=== PATIENT | female | born 1955 | race Caucasian/White ===

== ENCOUNTER → 2019-01-18 13:54 | Outpatient (CLI) | payer MEDICARE, OTHER, SELFPAY | PROVIDERS: PCP Family Medicine; Visit Provider Family Medicine | DX: M81.0 Age-related osteoporosis without current pathological fracture (principal); Z78.0 Asymptomatic menopausal state | CPT/HCPCS: 77080 ==

== ENCOUNTER → 2019-06-26 12:49 | Outpatient (CLI) | payer MEDICARE, OTHER, SELFPAY ==
--- NOTE | 2019-06-26 | DI.MG.S_ITS ---
BILATERAL DIGITAL SCREENING MAMMOGRAM 3D/2D WITH CAD: 06/26/2019 CLINICAL: Routine screening. Comparison is made to exams dated: 06/13/2018 mammogram, 05/17/2017 mammogram, and 05/04/2016 mammogram - [facility]. The tissue of both breasts is heterogeneously dense. This may lower the sensitivity of mammography. Current study was also evaluated with a Computer Aided Detection (CAD) system. There is a 0.5 cm oval equal density mass with an indistinct margin and grouped fine punctate calcifications in the left breast at 1 o'clock posterior depth. This is increased in number of calcifications. No other significant masses, calcifications, or other findings are seen in either breast. IMPRESSION: INCOMPLETE: NEEDS ADDITIONAL IMAGING EVALUATION The 0.5 cm oval equal density mass in the left breast is indeterminate. Mediolateral and spot magnification views as well as additional views with possible ultrasound are recommended. This exam was interpreted at Station ID: [id number]. NOTE: For mammograms, a report in lay terms will be sent to the patient. Approximately 15% of breast malignancies will not be visualized mammographically. In the management of a palpable breast mass, a negative mammogram must not discourage biopsy of a clinically suspicious lesion. Electronically Signed By: Yonatan velez/trip:06/26/2019 15:11:26 letter sent: Additional Imaging Needed ACR BI-RADS Category 0: Incomplete 3340F
== END ==
PROVIDERS: PCP Family Medicine; Visit Provider Family Medicine
DX: Z12.31 Encounter for screening mammogram for malignant neoplasm of breast (principal)
CPT/HCPCS: 77063; 77067

== ENCOUNTER → 2019-07-05 13:30 | Outpatient (CLI) | payer MEDICARE, OTHER, SELFPAY ==
--- NOTE | 2019-07-05 | DI.US.S_ITS ---
LIMITED ULTRASOUND OF LEFT BREAST: 07/05/2019 CLINICAL: Palpable left breast lump. Comparison is made to exams dated: 07/05/2019 mammogram, 06/26/2019 mammogram - [facility], 06/13/2018 mammogram, 05/17/2017 mammogram, and 05/04/2016 mammogram - [facility]. Color flow ultrasound of the left breast 1-3 o'clock region was performed. Santiago scale images of the real-time examination were reviewed. There is a 0.7 x 0.4 x 0.3 cm oval circumscribed hypoechoic mass with increased through transmission/posterior acoustic enhancement, and no vascularity on Doppler ultrasound located in the left breast at 2 o'clock 2 cm from the nipple. This demonstrates low level internal echogenic foci versus possible calcifications. This may correlate with the finding seen on mammography. IMPRESSION: PROBABLY BENIGN 0.7 x 0.4 x 0.3 cm oval hypoechoic avascular mass in the left breast at 2 o'clock 2 cm from the nipple, which may represent a complicated cyst or fibroadenoma. This may correlate with the findings seen on comparison mammography. A follow-up mammogram and an ultrasound in 6 months is recommended to demonstrate stability. The patient is advised to monitor her breasts and to return sooner for re-evaluation should she feel anything grow or change. This exam was interpreted at Station ID: [id number]. Electronically Signed By: Ernie Linares M.D. ecl/:07/06/2019 18:25:03 letter sent: Followup Recommended Ultrasound BI-RADS: 3 Probably benign
--- NOTE | 2019-07-05 | DI.MG.S_ITS ---
UNILATERAL LEFT DIGITAL DIAGNOSTIC MAMMOGRAM 3D/2D WITH ADDITIONAL VIEWS: 07/05/2019 CLINICAL: Additional evaluation requested from prior study. Comparison is made to exams dated: 06/26/2019 mammogram - [facility], 06/13/2018 mammogram, and 05/17/2017 mammogram - [facility]. The tissue of left breast is heterogeneously dense. This may lower the sensitivity of mammography. Previously identified 0.5 cm oval equal density mass with an indistinct margin and grouped calcifications in the superior lateral left breast at posterior depth on comparison screening mammograms of 06/26/19 persists with additional views. These were described as fine punctate calcifications near 1 o'clock position on screening mammography of 06/26/19, but demonstrate a more coarse morphology on magnification views (and appears near 1-2 o'clock position on additional views). Please note however that a single image in this exam is labeled RMCC (magnification RCC view) which, per technologist, represents a technical error. The image is of the calcifications in the left breast but was mislabeled as the right breast, with the label unable to be fixed despite multiple best efforts by technologist/technical staff. IMPRESSION: INCOMPLETE: NEEDS ADDITIONAL IMAGING EVALUATION Previously identified 0.5 cm oval equal density mass with an indistinct margin and grouped calcifications in the superior lateral left breast at posterior depth on comparison screening mammograms of 06/26/19 persists with additional views. A targeted ultrasound is recommended for further evaluation, and will be performed immediately following this exam. This exam was interpreted at Station ID: [id number]. NOTE: For mammograms, a report in lay terms will be sent to the patient. Approximately 15% of breast malignancies will not be visualized mammographically. In the management of a palpable breast mass, a negative mammogram must not discourage biopsy of a clinically suspicious lesion. Electronically Signed By: Ernie Linares M.D. ecl/:07/05/2019 14:32:36 ACR BI-RADS Category 0: Incomplete 3340F
== END ==
PROVIDERS: PCP Family Medicine; Visit Provider Family Medicine
DX: R92.8 Other abnormal and inconclusive findings on diagnostic imaging of breast (principal); N63.21 Unspecified lump in the left breast, upper outer quadrant
CPT/HCPCS: 76642; 77065; G0279

== ENCOUNTER → 2020-01-15 14:49 | Outpatient (CLI) | payer MEDICARE, OTHER, SELFPAY ==
--- NOTE | 2020-01-15 | DI.US.S_ITS ---
PROCEDURE: US ABDOMEN COMPLETE INDICATIONS: ABDOMINAL PAIN TECHNIQUE: Real-time scanning was performed of the abdominal and retroperitoneal organs, with image documentation. COMPARISON: None. FINDINGS: Liver: Liver is normal in size and homogeneous in echotexture. Gallbladder: No findings of gallstones or sludge are seen. The gallbladder wall is not thickened, measuring 3 mm or less. No specific pericholecystic fluid is seen. The sonographic Rosario sign is negative. Biliary ducts: Intrahepatic bile ducts are non-dilated. Extrahepatic bile duct caliber measures 6 mm. Normal is 6-7 mm or less in diameter, or 10 mm or less post-cholecystectomy. Pancreas: Visualized portions of the pancreas are sonographically normal. Spleen: Spleen is normal in size and homogeneous in echotexture. Kidneys: Kidneys are normal in size and echotexture. Right kidney measures 10.5 cm long; left kidney measures 10.3 cm long. No hydronephrosis or nephrolithiasis. No solid masses. Aorta: Visualized aorta is normal in caliber at less than 3 cm. Iliacs: Proximal common iliac arteries are normal in caliber at less than 2.5 cm. IVC: Intrahepatic inferior vena cava is patent. Miscellaneous: No free abdominal fluid. IMPRESSION: The gallbladder demonstrates a normal sonographic appearance. No biliary dilatation is seen. Dictated by: Jean Marin M.D. on 01/15/2020 at 17:12 Approved by: Jean Marin M.D. on 01/15/2020 at 17:13
--- NOTE | 2020-01-15 | DI.US.S_ITS ---
LIMITED ULTRASOUND OF LEFT BREAST: 01/15/2020 CLINICAL: Lt breast 6 month F/U. Comparison is made to exams dated: 01/15/2020 mammogram, 07/05/2019 ultrasound, 07/05/2019 mammogram, 06/26/2019 mammogram - [facility], 06/13/2018 mammogram, and 05/17/2017 mammogram - [facility]. Color flow and real-time ultrasound of the left breast 1-2 o'clock region were performed on the areas of interest. There is a 0.6 cm x 0.3 cm x 0.5 cm oval mass with an indistinct margin in the left breast at 1 o'clock posterior depth. This oval mass is hypoechoic. This likely correlates with mammography findings. There are related calcifications. Color flow imaging demonstrates that there is no vascularity present. There also is a 0.7 cm x 0.3 cm x 0.4 cm oval cyst in the left breast at 2 o'clock middle depth. This oval cyst is hypoechoic with internal echoes. This abnormality is not significantly changed. Color flow imaging demonstrates that there is no vascularity present. IMPRESSION: PROBABLY BENIGN The 0.6 cm x 0.3 cm x 0.5 cm oval mass in the left breast at 1 o'clock posterior depth likely represents a fibroadenoma and is probably benign. Follow-up mammogram and ultrasound in 6 months are recommended. The 0.7 cm x 0.3 cm x 0.4 cm oval cyst in the left breast at 2 o'clock middle depth is consistent with a complicated cyst and is probably benign. Follow-up mammogram and ultrasound in 6 months are recommended. A follow-up mammogram and an ultrasound in 6 months is recommended to demonstrate stability. Patient will be due for screening mammography of the contralateral breast at that time. This exam was interpreted at Station ID: [id number]. Electronically Signed By: Yonatan velez/:01/15/2020 16:31:45 letter sent: Followup Recommended Ultrasound BI-RADS: 3 Probably benign
--- NOTE | 2020-01-15 | DI.MG.S_ITS ---
UNILATERAL LEFT DIGITAL DIAGNOSTIC MAMMOGRAM 3D/2D SHORT-TERM FOLLOW-UP: 01/15/2020 CLINICAL: Patient returns for a 6 month follow up of the left breast. Comparison is made to exams dated: 07/05/2019 mammogram, 06/26/2019 mammogram - [facility], and [place] [facility] [place] The tissue of left breast is heterogeneously dense. This may lower the sensitivity of mammography. There is an oval equal density mass with an indistinct margin and grouped coarse dystrophic calcifications in the left breast at 1 o'clock posterior depth. This is increased in number of calcifications. No other significant masses or calcifications are seen in the breast. IMPRESSION: INCOMPLETE: NEEDS ADDITIONAL IMAGING EVALUATION The oval equal density mass in the left breast is indeterminate. An ultrasound is recommended. Ultrasound will be performed immediately following the current exam. This exam was interpreted at Station ID: [id number]. NOTE: For mammograms, a report in lay terms will be sent to the patient. Approximately 15% of breast malignancies will not be visualized mammographically. In the management of a palpable breast mass, a negative mammogram must not discourage biopsy of a clinically suspicious lesion. Electronically Signed By: Yonatan Grady M.D. ddp/:01/15/2020 16:05:56 ACR BI-RADS Category 0: Incomplete 3340F
== END ==
PROVIDERS: PCP Family Medicine; Referring Provider Family Medicine; Visit Provider Family Medicine
DX: R92.8 Other abnormal and inconclusive findings on diagnostic imaging of breast (principal); N60.02 Solitary cyst of left breast; R10.9 Unspecified abdominal pain
CPT/HCPCS: 76642; 76700; 77065; G0279

== ENCOUNTER → 2020-02-26 17:07 | Outpatient (CLI) | payer MEDICARE, OTHER, SELFPAY ==
--- NOTE | 2020-02-26 17:09 | DI.MRI.S_ITS ---
PROCEDURE: MR SHOULDER LT WO CON INDICATIONS: IMPINGEMENT SYNDROME OF LEFT SHOULDER TECHNIQUE: Noncontrast oblique coronal T2 fast spin echo with fat saturation, oblique sagittal T1 spin echo and T2 fast spin echo with fat saturation, axial T1 spin echo and T2 fast spin echo with fat saturation through the shoulder. COMPARISON: None. FINDINGS: Image quality: Excellent. Rotator cuff: Infraspinatus tendinopathy with partial thickness articular and bursal sided low-grade tear. There is mild thickening. There is also mild supraspinatus tendinopathy with low-grade articular and bursal surface fraying. Teres minor appears intact. Subscapularis tendon appears intact. No atrophy of the rotator cuff muscles. Minimal fatty infiltration of the supraspinatus and infraspinatus muscles. Bones and bursae: No bone marrow contusions or fractures. Mild acromioclavicular joint degeneration. Acromion demonstrates conventional anatomy, without an os acromiale. Lateral downsloping appearance of the acromion. Mild subacromial-subdeltoid bursitis. Capsule and soft tissues: Labrum: Incidental sublabral foramen. Mild fraying of the posterior labrum. No discrete labral tear identified. Long head of the biceps tendon intact. The rotator interval appears normal, without fibrosis. Coracohumeral ligament intact. IMPRESSION: Infraspinatus and supraspinatus tendinopathy. Partial thickness articular and bursal sided low-grade tear of the infraspinatus tendon. Mild articular and bursal surface fraying of the supraspinatus tendon. Mild subacromial-subdeltoid bursitis Lateral downsloping appearance of the acromion. Dictated by: Antelmo Muahmmad M.D. on 02/27/2020 at 10:51 Approved by: Antelmo Muhammad M.D. on 02/27/2020 at 10:59
== END ==
PROVIDERS: PCP Family Medicine; Referring Provider Physical Medicine & Rehabilitation Pain Medicine; Visit Provider Physical Medicine & Rehabilitation Pain Medicine
DX: M75.42 Impingement syndrome of left shoulder (principal); M75.112 Incomplete rotator cuff tear or rupture of left shoulder, not specified as traumatic; M75.52 Bursitis of left shoulder
CPT/HCPCS: 73221

== ENCOUNTER → 2020-10-07 13:23 | Outpatient (CLI) | payer MEDICARE, OTHER, SELFPAY ==
--- NOTE | 2020-10-07 | DI.US.S_ITS ---
LIMITED ULTRASOUND OF LEFT BREAST: 10/07/2020 CLINICAL: 6 month follow-up of cysts. Comparison is made to exams dated: 10/07/2020 mammogram, 01/15/2020 ultrasound, 01/15/2020 mammogram, 07/05/2019 ultrasound, 07/05/2019 mammogram, and 06/26/2019 mammogram - [facility]. Color flow and real-time ultrasound of the left breast 1-2 o'clock region were performed on the areas of interest. There is a stable 0.8 cm x 0.3 cm x 0.3 cm oval cyst in the left breast at 2 o'clock middle depth. This oval cyst is hypoechoic with a well-defined boundary, internal echoes, and posterior acoustic enhancement. This correlates with mammography findings. Color flow imaging demonstrates that there is no vascularity present. The oval mass in the left breast at 1 o'clock posterior depth with increased coarse calcifications seen mammographically is not discretely visualized on the current ultrasound study. IMPRESSION: PROBABLY BENIGN The stable 0.8 cm x 0.3 cm x 0.3 cm oval cyst in the left breast at 2 o'clock middle depth is consistent with a complicated cyst and is probably benign. A follow-up ultrasound in 6 months is recommended. The calcified mass at 1 o'clock is not discretely visualized on the current study. Given the coarse calcifications on mammography the findings likely represent a fibroadenoma. A 6 month followup ultrasound and mammogram may be performed to demonstrate continued stability in size for approximately 2 years. A follow-up mammogram and ultrasound in 6 months are recommended to demonstrate stability. This exam was interpreted at Station ID: [id number]. Electronically Signed By: Yonatan Grady M.D. ddtashi/:10/07/2020 14:52:58 letter sent: Followup Recommended Ultrasound BI-RADS: 3 Probably benign
--- NOTE | 2020-10-07 | DI.MG.S_ITS ---
BILATERAL DIGITAL DIAGNOSTIC MAMMOGRAM 3D/2D SHORT-TERM FOLLOW-UP: 10/07/2020 CLINICAL: Short term follow up of the left breast, due for bilateral imaging. Comparison is made to exams dated: 01/15/2020 mammogram, 07/05/2019 mammogram, and 06/26/2019 mammogram - [facility]. The tissue of both breasts is heterogeneously dense. This may lower the sensitivity of mammography. There is an oval equal density mass with an indistinct and circumscribed margin and grouped coarse punctate calcifications in the left breast at 1 o'clock posterior depth. The calcifications are more coarse compared to the prior studies. There also is an oval low density focal asymmetry with an indistinct and circumscribed margin in the left breast at 2 o'clock middle depth. This likley correlates with complicated cyst on ultrasound. No other significant masses, calcifications, or other findings are seen in either breast. IMPRESSION: INCOMPLETE: NEEDS ADDITIONAL IMAGING EVALUATION The oval equal density mass in the left breast at 1 o'clock posterior depth resembles a fibroadenoma and is indeterminate. An ultrasound is recommended. The oval low density focal asymmetry in the left breast at 2 o'clock middle depth is indeterminate. An ultrasound is recommended. Ultrasound will be performed immediately following the current exam. This exam was interpreted at Station ID: [id number]. NOTE: For mammograms, a report in lay terms will be sent to the patient. Approximately 15% of breast malignancies will not be visualized mammographically. In the management of a palpable breast mass, a negative mammogram must not discourage biopsy of a clinically suspicious lesion. Electronically Signed By: Yonatan Grady M.D. ddp/:10/07/2020 14:19:00 ACR BI-RADS Category 0: Incomplete 3340F
== END ==
PROVIDERS: PCP Family Medicine; Referring Provider Family Medicine; Visit Provider Family Medicine
DX: N60.02 Solitary cyst of left breast (principal); R92.8 Other abnormal and inconclusive findings on diagnostic imaging of breast
CPT/HCPCS: 76642; 77066; G0279

== ENCOUNTER → 2021-01-07 12:57 | Outpatient (CLI) | payer MEDICARE, OTHER, SELFPAY ==
--- NOTE | 2021-01-07 | DI.RAD.S_ITS ---
PROCEDURE: FL SHOULDER INJECTION MR/CT LT INDICATIONS: TEAR OF LEFT GLENOID LABRUM COMPARISON: None. TECHNIQUE: The indications, alternatives, benefits, risks, and complications of the procedure were explained to the patient. Written informed consent was obtained and placed in the chart. The shoulder was examined fluoroscopically and a site for needle placement chosen for entry into the glenohumeral joint from an anterior approach. The skin was prepped and draped in a sterile fashion, and 1% lidocaine infiltrated from skin down to joint capsule. A spinal needle was inserted into the glenohumeral joint, and a small amount of iodinated contrast media injected to confirm intra-articular placement of the needle tip. This was followed by approximately 12 mL dilute solution of a gadolinium containing MR contrast agent. The needle was removed and a dressing was applied. The patient was given postprocedural instructions and sent to the MR suite for MR imaging. FINDINGS: A single fluoroscopic spot image demonstrates intra-articular location of injected iodinated contrast. IMPRESSION: Successful fluoroscopically guided administration of dilute Gadolinium solution into the shoulder joint for MR arthrogram. Dictated by: Antelmo Muhammad M.D. on 01/07/2021 at 16:37 Approved by: Antelmo Muhammad M.D. on 01/07/2021 at 16:37
--- NOTE | 2021-01-07 | DI.MRI.S_ITS ---
PROCEDURE: MR SHOULDER LT W CON INDICATIONS: TEAR OF LEFT GLENOID LABRUM TECHNIQUE: After the administration of 12 mL of dilute intra-articular Gadolinium contrast, oblique coronal T1 and T2 spin echo with fat saturation, oblique sagittal T1 spin echo with and without fat saturation, oblique sagittal T2 fast spin echo with fat saturation, axial T1 spin echo with fat saturation through the shoulder. COMPARISON: [facility], CR, XR SHOULDER 2+ VIEWS LEFT, 11/03/2020, 13:42. FINDINGS: Image quality: Excellent. Rotator cuff: There is full-thickness tearing of the anterior supraspinatus tendon at the humeral insertion site measuring roughly 7 mm diameter. Mild T2 signal elevation within the remaining mid and posterior supraspinatus, as well as the mid and anterior infraspinatus tendons at the humeral insertion sites, indicating tendinopathy. Subscapularis and teres minor tendons are intact. Bones and bursae: No bone marrow contusions or fractures. No acromioclavicular joint degeneration. The acromion demonstrates conventional anatomy, without an os acromiale. Capsule and soft tissues: The labrum and glenohumeral ligaments appear intact. The long head of the biceps tendon demonstrates normal location and morphology. The rotator interval appears normal, without fibrosis. The coracohumeral ligament is of normal thickness. No intra-articular bodies. IMPRESSION: 1. Full-thickness tearing of the anterior supraspinatus tendon. 2. No definite glenoid labral tear. Dictated by: Marco Antonio Syed M.D. on 01/07/2021 at 14:31 Approved by: Marco Antonio Syed M.D. on 01/07/2021 at 15:07
== END ==
PROVIDERS: PCP Family Medicine; Referring Provider Orthopaedic Surgery; Visit Provider Orthopaedic Surgery
DX: S43.432A Superior glenoid labrum lesion of left shoulder, initial encounter (principal); M75.122 Complete rotator cuff tear or rupture of left shoulder, not specified as traumatic
CPT/HCPCS: 23350; 73222; 77002

== ENCOUNTER → 2021-04-03 12:34 | Outpatient (CLI) | payer MEDICARE, OTHER, SELFPAY ==
--- NOTE | 2021-04-03 | DI.RAD.S_ITS ---
PROCEDURE: XR DEXA AXIAL SKELETON INDICATIONS: osteoporosis COMPARISON: [facility], CR, XR DEXA AXIAL SKELETON, 01/18/2019, 14:30. FINDINGS: This blank DEXA report has been sent in error by the PACS system. The correct and complete report will be forthcoming in 1-2 days. Thank you for your patience and understanding. Dictated by: Stephanie High MD, PhD on 04/03/2021 at 14:25 Approved by: Stephanie High MD, PhD on 04/03/2021 at 14:33
--- NOTE | 2021-08-05 | DI.US.S_ITS ---
ULTRASOUND OF LEFT BREAST: 08/05/2021 CLINICAL: Patient returns today to evaluate two focal asymmetries in the left breast. Comparison is made to exams dated: 08/05/2021 mammogram, 10/07/2020 ultrasound, 10/07/2020 mammogram, 01/15/2020 ultrasound, 01/15/2020 mammogram, and 07/05/2019 [facility]. Color flow and Doppler ultrasound of the left breast were performed. Santiago scale images of the real-time examination were reviewed. There is a benign 0.6 cm x 0.6 cm x 0.4 cm oval cyst in the left breast at 1 o'clock posterior depth. This abnormality is decreased in size. There also is a stable benign 0.4 cm x 0.7 cm x 0.3 cm oval cyst in the left breast at 2 o'clock middle depth. This oval cyst is hypoechoic with a well-defined boundary, internal echoes, and posterior acoustic enhancement. This correlates with mammography findings. Color flow imaging demonstrates that there is no vascularity present. IMPRESSION: BENIGN There is no sonographic evidence of malignancy. The 0.6 cm x 0.6 cm x 0.4 cm oval cyst in the left breast at 1 o'clock posterior depth is benign. The stable 0.4 cm x 0.7 cm x 0.3 cm oval cyst in the left breast at 2 o'clock middle depth is consistent with a complicated cyst and is benign. Return to annual mammogram screening schedule is recommended. This exam was interpreted at Station ID: [id number]. Electronically Signed By: Damir Jung acr/:08/05/2021 14:33:31 letter sent: Normal Exam Ultrasound BI-RADS: 2 Benign
== END ==
PROVIDERS: PCP Family Medicine; Referring Provider Family Medicine; Visit Provider Family Medicine
DX: M81.0 Age-related osteoporosis without current pathological fracture (principal); M85.88 Other specified disorders of bone density and structure, other site
CPT/HCPCS: 77080

== ENCOUNTER → 2021-08-05 11:50 | Outpatient (CLI) | payer MEDICARE, OTHER, SELFPAY ==
--- NOTE | 2021-08-05 | DI.MG.S_ITS ---
BILATERAL DIGITAL DIAGNOSTIC MAMMOGRAM 3D/2D: 08/05/2021 CLINICAL: Late short follow up, due bilateral. Comparison is made to exams dated: 10/07/2020 mammogram, 01/15/2020 mammogram, 07/05/2019 ultrasound, 07/05/2019 mammogram, 06/26/2019 mammogram - [facility], and 06/13/2018 mammogram - [facility]. The tissue of both breasts is heterogeneously dense. This may lower the sensitivity of mammography. There is a stable oval equal density mass with an indistinct and circumscribed margin and grouped coarse punctate calcifications in the left breast at 1 o'clock posterior depth. There also is a stable oval low density focal asymmetry with an indistinct and circumscribed margin in the left breast at 2 o'clock middle depth. This correlates with ultrasound findings. No other significant masses, calcifications, or other findings are seen in either breast. IMPRESSION: INCOMPLETE: NEEDS ADDITIONAL IMAGING EVALUATION The stable oval equal density mass in the left breast at 1 o'clock posterior depth resembles a fibroadenoma and is indeterminate. An ultrasound is recommended. The stable oval low density focal asymmetry in the left breast at 2 o'clock middle depth is indeterminate. An ultrasound is recommended. US will be performed and dictated separately. This exam was interpreted at Station ID: [id number]. NOTE: For mammograms, a report in lay terms will be sent to the patient. Approximately 15% of breast malignancies will not be visualized mammographically. In the management of a palpable breast mass, a negative mammogram must not discourage biopsy of a clinically suspicious lesion. Electronically Signed By: Damir Jung acr/:08/05/2021 12:30:02 Entry: - 08/06/2021 09:48:29 ACR BI-RADS Category 0: Incomplete 3340F
== END ==
PROVIDERS: PCP Family Medicine; Referring Provider Family Medicine; Visit Provider Family Medicine
DX: R92.8 Other abnormal and inconclusive findings on diagnostic imaging of breast (principal); N60.02 Solitary cyst of left breast
CPT/HCPCS: 76642; 77066; G0279

== ENCOUNTER → 2022-02-23 12:27 | Outpatient (CLI) | payer MEDICARE, OTHER, SELFPAY ==
--- NOTE | 2022-02-23 | DI.RAD.S_ITS ---
PROCEDURE: FL SHOULDER INJECTION MR/CT LT INDICATIONS: Complete rotator cuff tear or rupture of left shoulder, not COMPARISON: [facility], MR, MR SHOULDER LT W CON, 02/23/2022, 13:26. [facility], RF, FL SHOULDER INJECTION MR/CT LT, 01/07/2021, 13:26. TECHNIQUE: The indications, alternatives, benefits, risks, and complications of the procedure were explained to the patient. Written informed consent was obtained and placed in the chart. The shoulder was examined fluoroscopically and a site for needle placement chosen for entry into the glenohumeral joint from an anterior approach. The skin was prepped and draped in a sterile fashion, and 1% lidocaine infiltrated from skin down to joint capsule. A spinal needle was inserted into the glenohumeral joint, and a small amount of iodinated contrast media injected to confirm intra-articular placement of the needle tip. This was followed by approximately 12 mL dilute solution of a gadolinium containing MR contrast agent. The needle was removed and a dressing was applied. The patient was given postprocedural instructions and sent to the MR suite for MR imaging. FINDINGS: A single fluoroscopic spot image demonstrates intra-articular location of injected iodinated contrast. IMPRESSION: Successful fluoroscopically guided administration of dilute Gadolinium solution into the shoulder joint for MR arthrogram. Dictated by: Meli Hamilton M.D. on 02/25/2022 at 10:19 Approved by: Meli Hamilton M.D. on 02/25/2022 at 10:19
--- NOTE | 2022-02-23 | DI.MRI.S_ITS ---
PROCEDURE: MR SHOULDER LT W CON INDICATIONS: Complete rotator cuff tear or rupture of left shoulder, not TECHNIQUE: After the administration of 12 mL of dilute intra-articular Gadolinium contrast, oblique coronal T1 and T2 spin echo with fat saturation, oblique sagittal T1 spin echo with and without fat saturation, oblique sagittal T2 fast spin echo with fat saturation, axial T1 spin echo with fat saturation through the shoulder. COMPARISON: [facility], MR, MR SHOULDER LT W CON, 01/07/2021, 13:46. [facility], CR, XR SHOULDER 2+ VIEWS LEFT, 03/19/2021, 10:48. FINDINGS: Image quality: Excellent. Rotator cuff: There is moderate grade articular surface tearing of the anterior supraspinatus tendon at the humeral insertion site. Infraspinatus, subscapularis, and teres minor tendons are intact. No rotator cuff atrophy. Bones and bursae: No bone marrow contusions or fractures. Status post resection at the acromioclavicular joint. Tendon anchors within the humeral head are present. Capsule and soft tissues: The labrum and glenohumeral ligaments appear intact. Biceps tendon reimplantation is present. Biceps tendon is intact. The rotator interval appears normal, without fibrosis. The coracohumeral ligament is of normal thickness. No intra-articular bodies. IMPRESSION: 1. Postsurgical sequelae. 2. Moderate grade articular surface tearing of the anterior supraspinatus tendon. No full-thickness rotator cuff tear. Dictated by: Marco Antonio Syed M.D. on 02/23/2022 at 16:43 Transcribed by: MARY BETH on 02/23/2022 at 16:46 Approved by: Marco Antonio Syed M.D. on 02/23/2022 at 16:52
== END ==
PROVIDERS: PCP Family Medicine; Referring Provider Orthopaedic Surgery; Visit Provider Orthopaedic Surgery
DX: M75.122 Complete rotator cuff tear or rupture of left shoulder, not specified as traumatic (principal)
CPT/HCPCS: 23350; 73222

== ENCOUNTER → 2022-03-18 12:56 | Outpatient (CLI) | payer MEDICARE, OTHER, SELFPAY ==
--- NOTE | 2022-03-18 | DI.RAD.S_ITS ---
PROCEDURE: XR SKULL<4V INDICATIONS: Other acquired deformity of head TECHNIQUE: 3 view(s) of the skull acquired. COMPARISON: None. FINDINGS: Bones: No fractures. No suspicious bony lesions. Visualized sinuses appear clear. Soft tissues: No soft tissue calcifications. No suspicious soft tissue densities. IMPRESSION: Normal skull radiographs Approved by: Ramez Arellano M.D. on 03/18/2022 at 16:00
== END ==
PROVIDERS: PCP Family Medicine; Referring Provider Family Medicine; Visit Provider Family Medicine
DX: M95.2 Other acquired deformity of head (principal)
CPT/HCPCS: 70250

== ENCOUNTER → 2022-10-18 16:13 | Outpatient (CLI) | payer MEDICARE, OTHER, SELFPAY ==
--- NOTE | 2022-10-18 16:18 | DI.MG.S_ITS ---
BILATERAL DIGITAL SCREENING MAMMOGRAM 3D/2D WITH CAD: 10/18/2022 CLINICAL: Routine screening. Comparison is made to exams dated: 08/05/2021 mammogram, 10/07/2020 mammogram, and 06/26/2019 mammogram - [facility]. Both breasts are heterogeneously dense, which may obscure small masses (category c / 51-75% glandular tissue). Current study was also evaluated with a Computer Aided Detection (CAD) system. No significant masses, calcifications, or other findings are seen in either breast. There has been no significant interval change. IMPRESSION: NEGATIVE There is no mammographic evidence of malignancy. A 1 year screening mammogram is recommended. Based on the Tyrer Cuzick model (a risk assessment model) the patient's lifetime risk is 7.1% and her 10 year risk is 3.9%. According to the ACR, ACS, and NCCN guidelines, an annual breast MRI exam along with mammogram is recommended if the patient's lifetime risk is 20% or greater. This exam was interpreted at Station ID: [id number]. NOTE: For mammograms, a report in lay terms will be sent to the patient. Approximately 15% of breast malignancies will not be visualized mammographically. In the management of a palpable breast mass, a negative mammogram must not discourage biopsy of a clinically suspicious lesion. Electronically Signed By: Maury mortensen/trip:10/19/2022 08:57:28 letter sent: Normal Exam ACR BI-RADS Category 1: Negative 3341F
== END ==
PROVIDERS: PCP Family Medicine; Referring Provider Family Medicine; Visit Provider Family Medicine
DX: Z12.31 Encounter for screening mammogram for malignant neoplasm of breast (principal)
CPT/HCPCS: 77063; 77067

== ENCOUNTER → 2022-11-11 11:00 | Outpatient (CLI) | payer MEDICARE, OTHER, SELFPAY ==
--- NOTE | 2022-11-11 | DI.MRI.S_ITS ---
PROCEDURE: MR SHOULDER LT W CON INDICATIONS: Complete rotator cuff tear rupture left shoulder TECHNIQUE: After the administration of 12 mL of dilute intra-articular Gadolinium contrast, oblique coronal T1 and T2 spin echo with fat saturation, oblique sagittal T1 spin echo with and without fat saturation, oblique sagittal T2 fast spin echo with fat saturation, axial T1 spin echo with fat saturation through the shoulder. COMPARISON: None. FINDINGS: Image quality: Excellent. Rotator cuff: There is prior rotator cuff tendon repair. D moderate grade articular and bursal surface partial thickness tear involving most anterior fibers of distal supraspinatus at its insertion on the humeral head is seen extending to musculotendinous junction. Tendinosis involving rest of the supraspinatus and infraspinatus. Distal subscapularis tendon is intact. No full-thickness rotator cuff tendon rupture. No significant rotator cuff muscle atrophy on sagittal images. Bones and bursae: Postsurgical changes are seen in greater tuberosity of humeral head. No gross marrow edema. No acute fracture or dislocation. Expected postsurgical widening of acromioclavicular joint is seen. Capsule and soft tissues: Subtle signal abnormality, contour irregularity and contrast extension in superior anterior labrum at 12 to 1 o'clock position is seen concerning for subtle superior anterior labral tear . The glenohumeral ligaments appear intact. There is proximal long head of biceps tenodesis with grossly intact proximal long head of biceps tendon. The rotator interval appears normal, without fibrosis. The coracohumeral ligament is of normal thickness. No intra-articular bodies. IMPRESSION: 1. Postsurgical changes from prior rotator cuff tendon repair. No acute fracture or dislocation. No marrow edema. No gross intra-articular loose bodies. Likely postsurgical widening of acromioclavicular joint. 2. Moderate to high-grade articular and bursal surface partial thickness tear involving most anterior fibers of distal supraspinatus at its insertion on the humeral head extending to musculotendinous junction. Tendinosis involving rest of the supraspinatus tendon and infraspinatus tendon. No full-thickness rotator cuff tendon rupture. No significant muscle atrophy. 3. Finding is concerning for subtle superior anterior labral tear at 12 to 1 o'clock position. 4. Prior proximal long head of biceps tenodesis with intact biceps tendon. Dictated by: Bradford Ragland M.D. on 11/11/2022 at 14:41 Approved by: Bradford Ragland M.D. on 11/11/2022 at 15:21
--- NOTE | 2022-11-11 | DI.RAD.S_ITS ---
PROCEDURE: FL SHOULDER INJECTION MR/CT LT INDICATIONS: Complete rotator cuff tear rupture left shoulder COMPARISON: [facility], , AR SHOULDER INJECTION MR/CT LT, 02/23/2022, 12:58. TECHNIQUE: The indications, alternatives, benefits, risks, and complications of the procedure were explained to the patient. Written informed consent was obtained and placed in the chart. The shoulder was examined fluoroscopically and a site for needle placement chosen for entry into the glenohumeral joint from an anterior approach. The skin was prepped and draped in a sterile fashion, and 1% lidocaine infiltrated from skin down to joint capsule. A spinal needle was inserted into the glenohumeral joint, and a small amount of iodinated contrast media injected to confirm intra-articular placement of the needle tip. This was followed by approximately 12 mL dilute solution of a gadolinium containing MR contrast agent. The needle was removed and a dressing was applied. The patient was given postprocedural instructions and sent to the MR suite for MR imaging. FINDINGS: A single fluoroscopic spot image demonstrates intra-articular location of injected iodinated contrast. IMPRESSION: Successful fluoroscopically guided administration of dilute Gadolinium solution into the shoulder joint for MR arthrogram. Dictated by: Maury Jordan M.D. on 11/11/2022 at 18:18 Approved by: Maury Jordan M.D. on 11/11/2022 at 18:18
== END ==
PROVIDERS: PCP Family Medicine; Referring Provider Orthopaedic Surgery; Visit Provider Orthopaedic Surgery
DX: M75.112 Incomplete rotator cuff tear or rupture of left shoulder, not specified as traumatic (principal)
CPT/HCPCS: 23350; 73222

== ENCOUNTER → 2023-10-28 13:00 | Outpatient (CLI) | payer MEDICARE, OTHER, SELFPAY ==
--- NOTE | 2023-10-28 13:02 | DI.MG.S_ITS ---
BILATERAL DIGITAL SCREENING MAMMOGRAM 3D/2D WITH CAD: 10/28/2023 CLINICAL: Routine screening. Comparison is made to exams dated: 10/18/2022 mammogram, 08/05/2021 mammogram, and 10/07/2020 mammogram - [facility]. Both breasts are heterogeneously dense, which may obscure small masses (category c / 51-75% glandular tissue). Current study was also evaluated with a Computer Aided Detection (CAD) system. There are benign calcifications in both breasts. There also is a biopsy clip in the right breast. Additionally, there are benign post operative findings in the left breast. No significant masses, calcifications, or other findings are seen in either breast. There has been no significant interval change. IMPRESSION: BENIGN There is no mammographic evidence of malignancy. A 1 year screening mammogram is recommended. Based on the Tyrer Cuzick model (a risk assessment model) the patient's lifetime risk is 6.7% and her 10 year risk is 3.9%. According to the ACR, ACS, and NCCN guidelines, an annual breast MRI exam along with mammogram is recommended if the patient's lifetime risk is 20% or greater. This exam was interpreted at Station ID: [id number]. NOTE: For mammograms, a report in lay terms will be sent to the patient. Approximately 15% of breast malignancies will not be visualized mammographically. In the management of a palpable breast mass, a negative mammogram must not discourage biopsy of a clinically suspicious lesion. Electronically Signed By: Meli ayuob/trip:10/28/2023 13:58:21 letter sent: Normal Exam ACR BI-RADS Category 2: Benign Finding(s) [id number]
== END ==
LOC: MAMMO 13:01
PROVIDERS: PCP Family Medicine; Referring Provider Family Medicine; Visit Provider Family Medicine
DX: Z12.31 Encounter for screening mammogram for malignant neoplasm of breast (principal); R92.333 Mammographic heterogeneous density, bilateral breasts
CPT/HCPCS: 77063; 77067

== ENCOUNTER → 2024-11-14 11:37 | Outpatient (CLI) | payer MEDICARE, OTHER, SELFPAY ==
--- NOTE | 2024-11-14 11:40 | DI.RAD.S_ITS ---
PROCEDURE: XR CERVICAL SPINE 2V OR 3V INDICATIONS: SPINE PAIN TECHNIQUE: 3 view(s) of the cervical spine were acquired. COMPARISON: None. FINDINGS: Bones: No fractures or dislocations to the T1 level. Moderate to severe C5-C6 and mild to moderate C4-C5 and C6-C7 disc height loss with adjacent endplate sclerosis and anterior osteophytosis. The lateral masses of C1 appear intact on the odontoid view. No suspicious bony lesions. Soft tissues: No prevertebral soft tissue swelling. IMPRESSION: Degenerative change of the cervical spine without evidence of acute osseous abnormality. Dictated by: Obinna Jackson M.D. on 11/15/2024 at 2:47 Approved by: Obinna Jackson M.D. on 11/15/2024 at 2:48
--- NOTE | 2024-11-14 11:41 | DI.MG.S_ITS ---
MM screening mammo BI: 11/14/2024. BI-RADS: 2 CLINICAL: 69-year old female for bilateral screening mammogram. Tyrer-Cuzick lifetime risk of 2.9%. No personal or first-degree family history of breast cancer. The patient had a prior right breast biopsy. PRIOR EXAMS 10/28/2023, 10/18/2022, 08/05/2021, 10/07/2020, 01/15/2020, 07/05/2019, 06/26/2019. MAMMOGRAPHY TECHNIQUE: 2D and 3D (tomosynthesis) digital mammographic views obtained, with additional images as needed for full coverage. Current study was also evaluated with a Computer Aided Detection (CAD) system. DENSITY C. The breasts are heterogeneously dense, which may obscure small masses. MAMMOGRAPHY FINDINGS Right: Biopsy marker present on the right. Benign-appearing calcification noted on the right. There are no suspicious masses, calcifications, or other findings in the breast. No significant change from comparison. Left: Benign-appearing calcification noted on the left. There are no suspicious masses, calcifications, or other findings in the breast. No significant change from comparison. IMPRESSION: * No evidence of malignancy with benign findings. RECOMMENDATIONS Bilateral * Annual screening mammography. OVERALL ASSESSMENT CATEGORY BI-RADS-2: Benign. The [employer] recommends annual screening mammography beginning at age 40 for women with average risk of breast cancer. ELECTRONICALLY SIGNED: Gillian Nesbitt M.D. on 11/14/2024 at 04:08:20 PM PT Interpreting Station ID: [id number]
== END ==
PROVIDERS: PCP Family Medicine; Referring Provider Family Medicine; Visit Provider Family Medicine
DX: Z12.31 Encounter for screening mammogram for malignant neoplasm of breast (principal); M50.30 Other cervical disc degeneration, unspecified cervical region
CPT/HCPCS: 72040; 77063; 77067

== ENCOUNTER → 2024-11-14 11:41 | Outpatient (CLI) | payer MEDICARE, OTHER, SELFPAY ==
--- NOTE | 2024-11-14 11:43 | DI.RAD.S_ITS ---
PROCEDURE: FL ARTHROGRAM SHOULDER LT INDICATIONS: COMPLETE TEAR LEFT ROTATOR CUFF COMPARISON: None. TECHNIQUE: The indications, alternatives, benefits, risks, and complications of the procedure were explained to the patient. Written informed consent was obtained and placed in the chart. The shoulder was examined fluoroscopically and a site for needle placement chosen for entry into the glenohumeral joint from an anterior approach. The skin was prepped and draped in a sterile fashion, and 1% lidocaine infiltrated from skin down to joint capsule. A spinal needle was inserted into the glenohumeral joint, and a small amount of iodinated contrast media injected to confirm intra-articular placement of the needle tip. This was followed by approximately 12 mL dilute solution of a gadolinium containing MR contrast agent. The needle was removed and a dressing was applied. The patient was given postprocedural instructions and sent to the MR suite for MR imaging. FINDINGS: Once the needle was in place within the glenohumeral joint the initial injection of approximately 1-2 cc proceeded without resistance. Following this there was intermittent resistance to the flow during injection which is nonspecific but may be an indication of adhesive capsulitis. A single fluoroscopic spot image demonstrates intra-articular location of injected iodinated contrast. IMPRESSION: Successful fluoroscopically guided administration of dilute Gadolinium solution into the shoulder joint for MR arthrogram as discussed above. Possible adhesive capsulitis. Dictated by: Orlando Oh M.D. on 11/14/2024 at 21:41 Approved by: Orlando Oh M.D. on 11/14/2024 at 21:46
--- NOTE | 2024-11-14 11:44 | DI.MRI.S_ITS ---
PROCEDURE: MR SHOULDER LT W CON INDICATIONS: COMPLETE TEAR LEFT ROTATOR CUFF TECHNIQUE: After the administration of 12 mL of dilute intra-articular Gadolinium contrast, oblique coronal T1 and T2 spin echo with fat saturation, oblique sagittal T1 spin echo with and without fat saturation, oblique sagittal T2 fast spin echo with fat saturation, axial T1 spin echo with fat saturation through the shoulder. COMPARISON: [facility], MR, MR SHOULDER LT W CON, 11/11/2022, 12:11. FINDINGS: Image quality: Diagnostic Rotator cuff: Bulk: No significant atrophy Teres minor: Intact Supraspinatus: Full-thickness perforating tear of the anterior-most fibers. Partial thickness tears are seen of the posterior fibers, mostly along the articular surface. These have worsened from prior imaging. Infraspinatus: Partial-thickness articular surface tears as before, slightly worse Subscapularis: Partial-thickness articular sided tears. Bones and bursae: GH joint: Evak-sh-coqqwxml arthrosis. Filled with contrast. AC joint: Widening, likely postsurgical Humeral head: Postsurgical changes of rotator cuff repair Scapula and acromion: No acute fracture Bursa: Mild bursal edema, as well as mild communicating contrast. Capsule: Labrum: Small anterior superior labral tear Long head biceps tendon: Postsurgical changes IGHL: Intact Rotator interval: Fluid and contrast are seen Soft tissues: No axillary adenopathy. Lungs are not well seen. IMPRESSION: Slightly worsened rotator cuff tears. Small perforating full-thickness tear is seen in the anterior most supraspinatus fibers. Partial thickness tear seen in the infraspinatus, posterior supraspinatus, and subscapularis. [id number] glenohumeral arthrosis. Small anterior superior labral tear. Mild bursal edema and contrast communication with the joint. Dictated by: Azael Smith M.D. on 11/15/2024 at 11:12 Approved by: Azael Smith M.D. on 11/15/2024 at 11:17
--- NOTE | 2024-11-14 11:44 | DI.MRI.S_ITS ---
PROCEDURE: MR SHOULDER RT WO CON INDICATIONS: COMPLETE TEAR LEFT ROTATOR CUFF TECHNIQUE: Noncontrast oblique coronal T2 fast spin echo with fat saturation, oblique sagittal T1 spin echo and T2 fast spin echo with fat saturation, axial T1 spin echo and T2 fast spin echo with fat saturation through the shoulder. COMPARISON: [facility], MR, MR SHOULDER LT WO CON, 02/26/2020, 17:17. [facility], CR, XR SHOULDER 2+ VIEWS RIGHT, 03/13/2024, 13:12. None FINDINGS: Image quality: Diagnostic Rotator cuff: Bulk: No significant atrophy Teres minor: Intact Supraspinatus: Moderate partial-thickness distal tendon articular surface tear. Background moderate tendinosis. Infraspinatus: Mild tendinosis Subscapularis: Mild tendinosis Bones and bursae: GH joint: Bqbi-cl-xifgxasm degenerative changes AC joint: Moderate degenerative changes Humeral head: No acute fracture. Scapula and acromion: Intact Bursa: Mild bursitis Capsule: Labrum: Anterior superior labral tear is seen, in close proximity to the biceps anchor. Possible nondisplaced tear in the posterior inferior labrum also seen Long head biceps tendon: Intra-articular tendinosis IGHL: Intact Rotator interval: Partially effaced with edema Soft tissues: No axillary adenopathy. Lungs are not well seen. IMPRESSION: Moderate partial-thickness distal supraspinatus articular surface tear. Background tendinosis seen in the other rotator cuff fibers. Anterior superior labral tear, in close proximity to the biceps anchor. Possible nondisplaced posterior inferior labral tear. Adjacent intra-articular tendinosis of the long head biceps tendon. Caqw-up-[id number] glenohumeral and moderate acromioclavicular degenerative changes. Mild subacromial/subdeltoid bursitis. Dictated by: Azael Smith M.D. on 11/15/2024 at 11:17 Approved by: Azael Smith M.D. on 11/15/2024 at 11:23
[2024-11-14] MEDS: LIDOCAINE 1% 20 ML INJ (12:39)
[2024-11-14] MEDS: SODIUM CHLORIDE 0.9 % 20 ML VIAL IV (12:39)
== END ==
LOC: RAD 11:42
PROVIDERS: PCP Family Medicine; Referring Provider Orthopaedic Surgery; Visit Provider Orthopaedic Surgery
DX: M75.122 Complete rotator cuff tear or rupture of left shoulder, not specified as traumatic (principal); M19.012 Primary osteoarthritis, left shoulder; S43.432A Superior glenoid labrum lesion of left shoulder, initial encounter; Z12.31 Encounter for screening mammogram for malignant neoplasm of breast; M50.30 Other cervical disc degeneration, unspecified cervical region; M25.412 Effusion, left shoulder; M75.111 Incomplete rotator cuff tear or rupture of right shoulder, not specified as traumatic; S43.431A Superior glenoid labrum lesion of right shoulder, initial encounter; M71.9 Bursopathy, unspecified
CPT/HCPCS: 23350; 72040; 73040; 73221; 73222; 77063; 77067; A9579; Q9967